=== PATIENT | female | born 1975 | race Two or more races ===

== ENCOUNTER 2023-07-19 12:46 | Inpatient (IN) | payer OTHER ==
[~2023-07-19] VITALS: Ht 157.5 cm; Wt 59.9 kg
[2023-07-19 17:25] LABS: HEMATOCRIT 46.5 % (36.0-45.00); HEMOGLOBIN 16.1 g/dL (12.0-15.00); MEAN CORPUSCULAR HEMOGLOBIN 30.9 pg (27.00-32.0); MEAN CORPUSCULAR HGB CONC 34.7 g/dl (32.0-36.0); RED BLOOD COUNT 5.22 M/uL (4.00-6.00); RED CELL DISTRIBUTION WIDTH 13.9 % (11.5-14.5)
[2023-07-19 17:35] LABS: ALBUMIN 3.7 gm/dL (3.4-5.0); BILIRUBIN TOTAL 0.49 mg/dL (0.3-1.2); CALCIUM 8.8 mg/dL (8.5-10.1); CREATININE SERUM 0.69 mg/dL (0.55-1.02); GFR 91.19; GLOBULINA 4.1 G/DL (2.4-3.5); POTASSIUM 3.5 mEq/L (3.5-5.1); TOTAL PROTEIN 7.8 gm/dL (6.4-8.2)
[2023-07-19 18:21] LABS: PLATELET COUNT 46 K/uL (150-450)
[2023-07-19 20:57] LABS: URINE APPEARANCE Cloudy; URINE BILIRRUBIN Negative (NEGATIVE); URINE BLOOD Negative; URINE COLOR Dark Yellow; URINE GLUCOSE Negative (NEGATIVE); URINE LEUKOCYTE Negative; URINE NITRATE Negative
[2023-07-19 20:58] LABS: URINE RBC 26.5 uL (0.0-20.8); URINE WBC 19.7 uL (0.0-23.2)
[2023-07-19 21:08] LABS: HEMOGLOBIN 16.6 g/dL (12.0-15.00); MEAN CELL VOLUME 90.2 fL (80.00-100.00); MEAN CORPUSCULAR HEMOGLOBIN 31.2 pg (27.00-32.0); MEAN CORPUSCULAR HGB CONC 34.6 g/dl (32.0-36.0); RED BLOOD COUNT 5.32 M/uL (4.00-6.00); RED CELL DISTRIBUTION WIDTH 13.4 % (11.5-14.5)
[2023-07-19 21:13] LABS: INR 0.97; PROTHROMBIN TIME 10.2 SECONDS (9.0-11.5)
[2023-07-19 21:13] LABS: URINE EPITHELIAL CELLS 0-4 /HPF; URINE PROTEIN 300 (NEGATIVE)
[2023-07-19 21:18] LABS: PLATELET COUNT 47 K/uL (150-450)
[2023-07-21 06:54] LABS: HEMATOCRIT 36.7 % (36.0-45.00); HEMOGLOBIN 12.8 g/dL (12.0-15.00); MEAN CELL VOLUME 89.8 fL (80.00-100.00); MEAN CORPUSCULAR HEMOGLOBIN 31.4 pg (27.00-32.0); RED BLOOD COUNT 4.08 M/uL (4.00-6.00); RED CELL DISTRIBUTION WIDTH 13.1 % (11.5-14.5)
[2023-07-21 08:39] LABS: PLATELET COUNT 54 K/uL (150-450)
== END 2023-07-21 13:10 | disposition home or self-care (01) | DRG 866 ==
LOC: ER 12:47 → SURG 20:02 → SEC-K 20:02 → SURG 21:48
PROVIDERS: General Practice; Internal Medicine Hematology & Oncology; ADMIT Internal Medicine; ATTEND Internal Medicine
PROC: BW40ZZZ Ultrasonography of Abdomen (ICD-10-PCS; principal; 2023-07-19)
DX: A90 Dengue fever [classical dengue] (principal); D69.6 Thrombocytopenia, unspecified; Z20.822 Contact with and (suspected) exposure to COVID-19